=== PATIENT | female | born 1980 | race Hispanic/Latino ===

== ENCOUNTER → 2020-03-22 | Outpatient (CLI) | payer SELFPAY ==
--- NOTE | 2020-03-23 20:32 | US ---
EXAM DESCRIPTION: Pelvis Transvaginal: Ultrasound. CLINICAL HISTORY: 39 years Female excessive and frequent menstruation with regular cycle COMPARISON: None. TECHNIQUE: Endovaginal scanning; Shook-scale and Doppler modes. FINDINGS: Uterus 8.3 x 9.9 x 5.7 cm 245.5 mL.. Endometrial thickness 24.4 mm, heterogeneous, no definite fluid. Myometrium heterogeneous. Posterior subcapsular hypoechoic mass measuring 3.4 x 2.9 x 2.4 cm. Heterogeneous mass measuring 4.1 x 3.3 x 2.0 cm. This mass is most likely a fibroid and may be submucosal. Increased color Doppler vascularity. Another fibroid measures 3.3 x 2.8 x 2.4 cm. Uterus not retroflexed. Cervix not well seen. But no cysts. Cul-de-sac no fluid. Bilateral ovaries are not visualized. No adnexal mass or free fluid. IMPRESSION: 1. Enlarged uterus with normal orientation. Heterogeneous myometrium. At least 3 fibroids are present: 1 fibroid appears to be vascular and submucosal. 2. Marked heterogeneity and thickening of endometrium but no fluid. No fluid in the cul-de-sac. 3. Adnexa not well seen and ovaries were not seen. Electronically signed by: Chandrakant Guillen MD 03/23/2020 8:31 PM CDT
== END ==
LOC: US 14:18
PROVIDERS: ATTEND Family Medicine
DX: N92.0 Excessive and frequent menstruation with regular cycle (principal); N85.2 Hypertrophy of uterus; D25.9 Leiomyoma of uterus, unspecified; R93.89 Abnormal findings on diagnostic imaging of other specified body structures